=== PATIENT | female | born 1965 | race Two or more races ===

== ENCOUNTER 2017-03-11 20:42 | Inpatient (IN) | payer BC ==
[~2017-03-11] VITALS: Ht 172.7 cm; Wt 60.2 kg
[2017-03-11 21:00] VITALS: BP 88/55
[2017-03-12] VITALS: BP 92/56
[2017-03-12] MEDS ORDERED: ACETAMINOPHEN325 M3 PO (03:21)
[2017-03-12] MEDS ORDERED: LIPITOR80 MG PO (03:24)
[2017-03-12] MEDS ORDERED: FLAGYL500 MG PO (03:26)
[2017-03-12] MEDS ORDERED: MACROBID100 MG PO (03:27)
[2017-03-12] MEDS ORDERED: BANATROL PLUS1 EACH PO (03:28)
[2017-03-12] MEDS ORDERED: SODIUM CHLOR1L 0.9 IV (03:31)
[2017-03-12] MEDS ORDERED: TUMS500 MG PO (03:34)
[2017-03-12] MEDS ORDERED: PROTONIX40 MG PO (03:36)
[2017-03-12] MEDS ORDERED: ELIQUIS2.5 MG PO (03:39)
[2017-03-12] MEDS ORDERED: LYRICA50 MG PO (03:39)
[2017-03-12] MEDS ORDERED: MIDODRINE HCL5 MG PO (03:41)
[2017-03-12] MEDS ORDERED: VALTREX50 MG/ML PO (03:42)
[2017-03-12] MEDS ORDERED: VASOTEC2.5 MG IV (03:43)
[2017-03-12] MEDS ORDERED: ZOFRAN4 MG PO (03:44)
[2017-03-12 04:48] VITALS: BP 89/55
[2017-03-12 05:09] LABS: EOSINOPHIL COUNT 0.2 K/uL (0-0.3); HEMATOCRIT 30.8 % (36.0-46.0); IMMATURE GRANULOCYTE (%) 0.3 % (0.0-0.7); INSTRUMENT ABS NEUTROPHIL CT 1.5 K/uL; LYMPHOCYTE COUNT 1.6 K/uL (1.0-2.8); MCH 33.4 PG (29.0-34.0); MCHC 31.8 G/DL (30.0-36.0); MCV 105.1 FL (83-99); MEAN PLAT.VOLUME 9.5 uM^3 (9.5-12.4); MONOCYTE (%) 12.1 % (3-12); MONOCYTE COUNT 0.5 K/uL (0-0.8); NEUTROPHIL (%) 40.5 % (45-76); NEUTROPHIL COUNT 1.5 K/uL (1.8-6.4); PLATELET COUNT 137 K/uL (156-360); RBC DIS.WIDTH-CV 12.6 % (11.8-14.6); RBC DIS.WIDTH-SD 48.8 % (39-53); RED BLOOD COUNT 2.93 M/uL (3.80-5.20); WHITE BLOOD COUNT 3.8 K/uL (4.1-10.2)
[2017-03-12 05:59] LABS: ALKALINE PHOSPHATASE 65 IU/L (3-129); ANION GAP 11 MEQ/L (2-14); C-REACTIVE PROTEIN 12.7 MG/L (0-10); CHLORIDE 113 MEQ/L (99-109); GFR ESTIMATE (CALCULATED) > 59 mL/min/; GLUCOSE 88 mg/dL (70-99); POTASSIUM 3.8 MEQ/L (3.7-5.4); SAMPLE HEMOLYSIS CHECK 0; SAMPLE ICTERIC CHECK 0; SAMPLE LIPEMIA CHECK 0; SODIUM 142 MEQ/L (136-147); TOTAL BILIRUBIN 0.3 MG/DL (0.0-1.0); UREA NITROGEN (BUN) 8 mg/dL (9-23)
[2017-03-12 07:38] LABS: ERTH.SED.RATE 11 MM/HR (0-30)
[2017-03-12 15:03] VITALS: BP 94/57
[2017-03-13 05:38] VITALS: BP 102/62
[2017-03-13 11:23] LABS: ADD MIUA? YES; BILIRUBIN NEGATIVE; BLOOD NEGATIVE; COLOR YELLOW ((YELLOW)); GLUCOSE (STRIP) NEGATIVE; KETONES NEGATIVE; LEUKOCYTES TRACE; NITRITE NEGATIVE; PROTEIN (STRIP) NEGATIVE; SPECIFIC GRAVITY 1.013 (1.000-1.030); UROBILINOGEN 0.2 MG/DL (0.2-1.0)
[2017-03-13 11:29] LABS: BACTERIA NONE SEEN /HPF; EPITHELIAL CELLS RARE /HPF; MUCUS TRACE /LPF; WHITE BLOOD CELLS 0-5 /HPF (0-5)
[2017-03-13 15:19] VITALS: BP 73/53
[2017-03-13 20:27] VITALS: BP 88/56
[2017-03-14 05:07] VITALS: BP 92/61
[2017-03-14 08:15] VITALS: BP 98/74
[2017-03-14 15:36] VITALS: BP 88/57
[2017-03-15 05:31] LABS: HEMATOCRIT 30.1 % (36.0-46.0); MCH 35.1 PG (29.0-34.0); MCHC 32.6 G/DL (30.0-36.0); MCV 107.9 FL (83-99); PLATELET COUNT 148 K/uL (156-360); RBC DIS.WIDTH-CV 13.3 % (11.8-14.6); RBC DIS.WIDTH-SD 52.1 % (39-53); RED BLOOD COUNT 2.79 M/uL (3.80-5.20); WHITE BLOOD COUNT 3.7 K/uL (4.1-10.2)
[2017-03-15 05:33] VITALS: BP 102/58
[2017-03-15 06:40] LABS: ALKALINE PHOSPHATASE 58 IU/L (3-129); ANION GAP 8 MEQ/L (2-14); CHLORIDE 114 MEQ/L (99-109); GFR ESTIMATE (CALCULATED) 56 mL/min/; GLUCOSE 84 mg/dL (70-99); SAMPLE HEMOLYSIS CHECK 0; SAMPLE ICTERIC CHECK 0; SAMPLE LIPEMIA CHECK 0; SODIUM 142 MEQ/L (136-147); TOTAL BILIRUBIN 0.3 MG/DL (0.0-1.0); UREA NITROGEN (BUN) 20 mg/dL (9-23)
[2017-03-15 06:46] LABS: GLOBULINS 1.6 G/DL (2.3-3.5)
[2017-03-15 07:15] VITALS: BP 72/50
[2017-03-15 15:27] VITALS: BP 116/62
[2017-03-16 04:35] VITALS: BP 83/52
[2017-03-16 14:53] LABS: ALBUMIN 2.68 G/DL (3.6-4.9); ALBUMIN PERCENT 60.8 % (49.3-67.1); ALPHA-1 GLOBULIN 0.42 G/DL (0.15-0.40); ALPHA-1 PERCENT 9.6 % (2.1-5.5); ALPHA-2 GLOBULIN 0.64 G/DL (0.45-0.85); ALPHA-2 PERCENT 14.5 % (6.2-11.6); BETA PERCENT 10.4 % (8.9-15.8); GAMMA PERCENT 4.7 % (8.6-18.6)
[2017-03-16 15:38] VITALS: BP 104/60
[2017-03-17 06:01] VITALS: BP 90/54
[2017-03-17 15:52] VITALS: BP 123/62
[2017-03-18 05:28] VITALS: BP 84/48
[2017-03-18 15:19] VITALS: BP 74/58
[2017-03-18 20:30] VITALS: BP 98/56
[2017-03-19 05:51] VITALS: BP 88/52
[2017-03-19 15:18] VITALS: BP 93/63
[2017-03-19 20:35] LABS: HEMATOCRIT 30.3 % (36.0-46.0); MCH 35.1 PG (29.0-34.0); MCV 109.8 FL (83-99); MEAN PLAT.VOLUME 9.5 uM^3 (9.5-12.4); RBC DIS.WIDTH-SD 55.8 % (39-53); RED BLOOD COUNT 2.76 M/uL (3.80-5.20); WHITE BLOOD COUNT 4.4 K/uL (4.1-10.2)
[2017-03-19 20:40] LABS: PLATELET COUNT 199 K/uL (156-360)
[2017-03-19 21:04] LABS: ALKALINE PHOSPHATASE 67 IU/L (3-129); ANION GAP 7 MEQ/L (2-14); CHLORIDE 111 MEQ/L (99-109); GFR ESTIMATE (CALCULATED) 46 mL/min/; GLUCOSE 85 mg/dL (70-99); POTASSIUM 3.9 MEQ/L (3.7-5.4); SAMPLE HEMOLYSIS CHECK 0; SAMPLE ICTERIC CHECK 0; SAMPLE LIPEMIA CHECK 0; SODIUM 141 MEQ/L (136-147); TOTAL BILIRUBIN 0.2 MG/DL (0.0-1.0); UREA NITROGEN (BUN) 28 mg/dL (9-23)
[2017-03-20 05:33] VITALS: BP 88/52
[2017-03-20] MEDS ORDERED: ASPIR-LOW81 MG PO (13:29)
[2017-03-20] MEDS ORDERED: FAMOTIDINE20 MG PO (13:29)
[2017-03-20] MEDS ORDERED: FLAGYL500 MG PO (13:29)
[2017-03-20] MEDS ORDERED: MIDODRINE HCL5 MG PO (13:29)
[2017-03-20] MEDS ORDERED: LIPITOR80 MG PO (13:51)
== END 2017-03-20 14:29 | DRG 57 ==
LOC: 3WEST 20:42 → ENPENDDIS 03-20 → 3WEST 03-20 14:29
PROVIDERS: Internal Medicine Hematology & Oncology; Physical Medicine & Rehabilitation Pain Medicine; Psychiatry & Neurology Neurology
PROC: F07M0ZZ Range of Motion and Joint Mobility Treatment of Musculoskeletal System - Whole Body (ICD-10-PCS; principal; 2017-03-11)
DX: I69.351 Hemiplegia and hemiparesis following cerebral infarction affecting right dominant side (principal); C90.00 Multiple myeloma not having achieved remission; R26.9 Unspecified abnormalities of gait and mobility; R64 Cachexia; A04.72 Enterocolitis due to Clostridium difficile, not specified as recurrent; G81.94 Hemiplegia, unspecified affecting left nondominant side; E87.6 Hypokalemia; K21.9 Gastro-esophageal reflux disease without esophagitis; D64.9 Anemia, unspecified; G89.29 Other chronic pain; N39.0 Urinary tract infection, site not specified; Z68.1 Body mass index [BMI] 19.9 or less, adult; Z94.84 Stem cells transplant status; Z87.442 Personal history of urinary calculi; Z86.711 Personal history of pulmonary embolism; Z92.21 Personal history of antineoplastic chemotherapy; Z79.01 Long term (current) use of anticoagulants; Z88.2 Allergy status to sulfonamides
CPT/HCPCS: 80053; 81003; 83883 90; 84165; 85025; 85027; 85651; 86140; 86334; 92523 GN; 92610 GN; 97110 GO; 97112 GO; 97112 GP; 97530 GP; 97532 GN